=== PATIENT | male | born 1950 | race Caucasian/White ===

== ENCOUNTER 2023-05-04 10:55 | Inpatient (IN) | payer MEDICARE ==
[~2023-05-04] VITALS: Ht 172.7 cm; Wt 77.1 kg
[2023-05-04] MEDS ORDERED: NA PHOS,M-B/NA PHOS,DI-BA 1 EA ENEMA RC ONE ×2 (11:28→11:30)
[2023-05-04 12:23] LABS: BASOPHILS % (AUTO) 0.8 % (0.0-2.0); EOSINOPHILS # (AUTO) 0.1 K/uL (0.0-0.7); EOSINOPHILS % (AUTO) 1.7 % (0.0-6.0); HEMATOCRIT 34 % (39-51); HEMOGLOBIN 11.4 g/dL (13.5-17.5); LYMPHOCYTES # (AUTO) 0.9 K/uL (0.8-4.8); LYMPHOCYTES % (AUTO) 15.8 % (20.0-44.0); MEAN CORPUSCULAR HEMOGLOBIN 29 PG (26.0-33.0); MEAN CORPUSCULAR HGB CONC 33 g/dl (31.0-36.0); MEAN CORPUSCULAR VOLUME 87 fL (80-96); MONOCYTES # (AUTO) 0.6 K/uL (0.1-1.30); MONOCYTES % (AUTO) 10.1 % (2.0-12.0); NEUTROPHILS # (AUTO) 3.9 K/uL (1.8-8.9); NEUTROPHILS % (AUTO) 71.6 % (43.0-81.0); PLATELET COUNT (AUTO) 279 K/uL (150-450); RED BLOOD CELL COUNT(AUTO) 3.96 MIL/uL (4.5-6.0); RED CELL DISTRIBUTION WIDTH 14.3 % (11.5-15.0); WHITE BLOOD COUNT (AUTO) 5.5 K/uL (4.3-11.0)
[2023-05-04 12:30] LABS: CREATININE 0.9 mg/dL (0.6-1.3); POTASSIUM 4.4 mmol/L (3.5-5.1)
[2023-05-04 12:36] LABS: ALBUMIN 3.1 g/dL (3.4-5.0); BILIRUBIN,DIRECT 0.1 mg/dL (0.0-0.2); BILIRUBIN,TOTAL 0.2 mg/dL (0.2-1.0); TOTAL PROTEIN, SERUM 6.8 g/dL (6.4-8.2)
[2023-05-04 15:30] VITALS: O2SAT 98
[2023-05-04] MEDS ORDERED: Z GUARD REMEDY 4 OZ OINT TP PRN (16:30)
[2023-05-04] MEDS ORDERED: MAG HYDROX/AL HYDROX/SIMETH 30 ML UDC PO PRN (16:30)
[2023-05-04] MEDS ORDERED: ACETAMINOPHEN 325 MG TABLET PO PRN (16:30)
[2023-05-04] MEDS ORDERED: ONDANSETRON HCL/PF 4 MG/2 ML VIAL IVP PRN (16:30)
[2023-05-04] MEDS ORDERED: MAGNESIUM HYDROXIDE 30 ML UDC PO PRN (16:30)
[2023-05-04] MEDS: HYDROCODONE/APAP 5/325MG TABLET PO PRN (17:54)
[2023-05-04] MEDS: ENOXAPARIN SODIUM 40 MG/0.4 ML DISP.SYRIN SQ SCH (17:55)
[2023-05-04] MEDS: IV NS 0.9% 1,000 ML IV PRN (18:08)
[2023-05-04 20:00] VITALS: BP 137/87; TEMP 98.6; O2SAT 99
[2023-05-05] MEDS: HYDROCODONE/APAP 5/325MG TABLET PO PRN ×4 (00:56→23:53)
[2023-05-05 06:22] LABS: BASOPHILS % (AUTO) 0.6 % (0.0-2.0); EOSINOPHILS # (AUTO) 0.1 K/uL (0.0-0.7); EOSINOPHILS % (AUTO) 1.2 % (0.0-6.0); HEMATOCRIT 34 % (39-51); HEMOGLOBIN 11.4 g/dL (13.5-17.5); LYMPHOCYTES % (AUTO) 20.5 % (20.0-44.0); MEAN CORPUSCULAR HEMOGLOBIN 29 PG (26.0-33.0); MEAN CORPUSCULAR HGB CONC 34 g/dl (31.0-36.0); MEAN CORPUSCULAR VOLUME 86 fL (80-96); MONOCYTES # (AUTO) 0.3 K/uL (0.1-1.30); MONOCYTES % (AUTO) 6.3 % (2.0-12.0); NEUTROPHILS # (AUTO) 3.4 K/uL (1.8-8.9); NEUTROPHILS % (AUTO) 71.4 % (43.0-81.0); PLATELET COUNT (AUTO) 277 K/uL (150-450); RED BLOOD CELL COUNT(AUTO) 3.94 MIL/uL (4.5-6.0); RED CELL DISTRIBUTION WIDTH 14.2 % (11.5-15.0); WHITE BLOOD COUNT (AUTO) 4.8 K/uL (4.3-11.0)
[2023-05-05 06:42] LABS: CALCIUM, SERUM 8.8 mg/dL (8.5-10.1); CREATININE 0.9 mg/dL (0.6-1.3); MAGNESIUM 2.1 mg/dL (1.8-2.4); PHOSPHORUS 3.2 mg/dL (2.5-4.9); POTASSIUM 4.2 mmol/L (3.5-5.1)
[2023-05-05 08:00] VITALS: BP 141/91; TEMP 97.9; O2SAT 98
[2023-05-05] MEDS: LACTULOSE 10 G/15 ML UDC (PYXIS) PO PRN ×2 (15:09→21:17)
[2023-05-05 16:00] VITALS: BP 115/61; TEMP 98.2; O2SAT 97
[2023-05-05] MEDS: ENOXAPARIN SODIUM 40 MG/0.4 ML DISP.SYRIN SQ SCH (17:43)
[2023-05-05 19:55] LABS: FREE PSA 0.1 ng/mL (0.00-45); THYROID STIMULATING HORMONE 6.139 uIU/mL (0.358-3.74)
[2023-05-05 20:20] VITALS: BP 121/73; TEMP 98.8; O2SAT 98
[2023-05-05] MEDS: IV NS 0.9% 1,000 ML IV PRN (21:17)
[2023-05-06] MEDS ORDERED: MINERAL OIL 133 ML (PYXIS) 1 EA ENEMA RC ONE (02:00)
[2023-05-06] MEDS ORDERED: MORPHINE SULFATE INJ 4 MG/ML DISP.SYRIN IV ONE (02:00)
[2023-05-06 06:23] LABS: BASOPHILS % (AUTO) 0.5 % (0.0-2.0); EOSINOPHILS % (AUTO) 0.7 % (0.0-6.0); HEMATOCRIT 35 % (39-51); HEMOGLOBIN 11.3 g/dL (13.5-17.5); LYMPHOCYTES # (AUTO) 0.8 K/uL (0.8-4.8); LYMPHOCYTES % (AUTO) 17.2 % (20.0-44.0); MEAN CORPUSCULAR HEMOGLOBIN 28 PG (26.0-33.0); MEAN CORPUSCULAR HGB CONC 33 g/dl (31.0-36.0); MEAN CORPUSCULAR VOLUME 86 fL (80-96); MONOCYTES # (AUTO) 0.5 K/uL (0.1-1.30); MONOCYTES % (AUTO) 10.2 % (2.0-12.0); NEUTROPHILS # (AUTO) 3.5 K/uL (1.8-8.9); NEUTROPHILS % (AUTO) 71.4 % (43.0-81.0); PLATELET COUNT (AUTO) 279 K/uL (150-450); RED CELL DISTRIBUTION WIDTH 14.3 % (11.5-15.0); WHITE BLOOD COUNT (AUTO) 4.9 K/uL (4.3-11.0)
[2023-05-06 07:03] LABS: ALBUMIN 2.9 g/dL (3.4-5.0); BILIRUBIN,DIRECT 0.1 mg/dL (0.0-0.2); BILIRUBIN,TOTAL 0.4 mg/dL (0.2-1.0); CALCIUM, SERUM 9.3 mg/dL (8.5-10.1); POTASSIUM 4.2 mmol/L (3.5-5.1)
[2023-05-06 08:00] VITALS: BP 132/91; TEMP 98.1; O2SAT 99
[2023-05-06 11:07] LABS: AFP, TUMOR MARKER 3.7 ng/mL (0.0-8.4); CARBOHYDRATE AG 19-9 7 U/mL (0-35); FOLIC ACID 4.1 ng/mL (>3.0)
[2023-05-06] MEDS ORDERED: CT SWABBABLE VALVE TRANS SET 1 EA INFUS.SET MC ONE ×2 (11:13→11:14)
[2023-05-06] MEDS ORDERED: IOHEXOL-300 100 ML VIAL IV ONE (11:13)
[2023-05-06] MEDS ORDERED: IV NS 0.9% 250 ML IV ONE (11:13)
[2023-05-06] MEDS: HYDROCODONE/APAP 10/325MG TABLET PO PRN ×2 (11:28→17:17)
[2023-05-06 13:06] LABS: HEPATITIS B SURFACE AB Non Reactive (.)
[2023-05-06 14:07] LABS: *SPE A/G RATIO 0.9 (0.7-1.7); *SPE ALPHA-1-GLOBULIN 0.4 g/dL (0.0-0.4); *SPE ALPHA-2-GLOBULIN 0.9 g/dL (0.4-1.0); *SPE BETA GLOBULIN 0.9 g/dL (0.7-1.3); *SPE GLOBULIN, TOTAL 3.4 g/dL (2.2-3.9); *SPE M-SPIKE Not Observed g/dL (Not Observed); *SPE PROTEIN TOTAL 6.4 g/dL (6.0-8.5); *SPEGAMMA GLOBULIN 1.2 g/dL (0.4-1.8); IMMUNOGLOBULIN A, SERUM 140 mg/dL (61-437); IMMUNOGLOBULIN G, SERUM 1182 mg/dL (603-1613)
[2023-05-06] MEDS ORDERED: LACT10SO58 PO (15:29)
[2023-05-06 16:00] VITALS: BP 132/77; TEMP 98.4; O2SAT 98
[2023-05-06] MEDS: ENOXAPARIN SODIUM 40 MG/0.4 ML DISP.SYRIN SQ SCH (17:00)
[2023-05-06] MEDS ORDERED: FERROUS SULFATE (325 MG) 325 MG/TAB TABLET PO SCH (17:00)
[2023-05-09 18:06] LABS: IMMUNOGLOBULIN M, SERUM 141 mg/dL (20-172)
== END 2023-05-06 18:11 | disposition home or self-care (01) | DRG 392 ==
LOC: ER 11:04 → MED 15:08
PROVIDERS: ADMIT Internal Medicine; ATTEND Internal Medicine
DX: D18.03 Hemangioma of intra-abdominal structures (principal); K59.00 Constipation, unspecified; D64.9 Anemia, unspecified; D50.9 Iron deficiency anemia, unspecified; N40.0 Benign prostatic hyperplasia without lower urinary tract symptoms; K63.89 Other specified diseases of intestine
CPT/HCPCS: 36415; 71270-TC; 74178; 80048-TC; 80076-TC; 82105; 82378; 82607-TC; 82728-TC; 82784; 83540-TC; 83690-TC; 83735-TC; 84100-TC; 84153-TC; 84154-TC; 84155; 84165; 84443-TC; 85025-TC; 86301; 86334; 86706; 86803; 87340; A4223; G0378; J1650; J2270; J7030; J7050; Q9967